=== PATIENT | male | born 1955 | race Caucasian/White ===

== ENCOUNTER 2024-04-28 06:18 | Day surgery (SDC) | payer MEDICARE, SELFPAY ==
[2024-04-28 07:56] LABS: Glucose - Point of Care 126 mg/dl (70-99)
[2024-04-28 07:59] VITALS: BMI 22.6
[2024-04-28 08:00] VITALS: BMI 22.6
[2024-04-28 08:01] VITALS: BP 137/79
[2024-04-28 08:52] VITALS: BP 119/67
[2024-04-28 09:00] VITALS: BP 114/83
[2024-04-28 09:14] LABS: Glucose - Point of Care 124 mg/dl (70-99)
[2024-04-28 09:15] VITALS: BP 119/75
== END 2024-04-28 09:30 | disposition home or self-care (01) ==
LOC: GI 06:18
PROVIDERS: ATTENDING PHYSICIAN Internal Medicine Gastroenterology
DX: K31.84 Gastroparesis (principal); K31.89 Other diseases of stomach and duodenum
CPT/HCPCS: 43236; 82962; J0585

== ENCOUNTER 2024-09-21 06:35 | Day surgery (SDC) | payer MEDICARE, SELFPAY ==
[2024-09-21 09:14] VITALS: BMI 24.3
[2024-09-21 09:15] VITALS: BMI 24.3
[2024-09-21 09:16] VITALS: BP 139/83
[2024-09-21 10:47] VITALS: BP 104/72
[2024-09-21 11:00] VITALS: BP 122/76
[2024-09-21 11:15] VITALS: BP 110/78
== END 2024-09-21 11:33 | disposition home or self-care (01) ==
LOC: SDS 06:35
PROVIDERS: ATTENDING PHYSICIAN Internal Medicine Gastroenterology
DX: K31.84 Gastroparesis (principal); K31.89 Other diseases of stomach and duodenum; K44.9 Diaphragmatic hernia without obstruction or gangrene
CPT/HCPCS: 43236; J0585

== ENCOUNTER → 2024-12-07 12:47 | Outpatient (REF) | payer MEDICARE, SELFPAY | LOC: RAD 12:47 | PROVIDERS: ATTENDING PHYSICIAN Student in an Organized Health Care Education/Training Program; REFERRING PHYSICIAN Internal Medicine Gastroenterology | DX: R10.32 Left lower quadrant pain (principal) | CPT/HCPCS: 74177; Q9967 ==

== ENCOUNTER 2025-03-28 06:29 | Day surgery (SDC) | payer MEDICARE, SELFPAY ==
[2025-03-28 13:33] VITALS: BMI 25.8
[2025-03-28 13:34] VITALS: BP 143/80; BMI 25.8
[2025-03-28 15:23] VITALS: BP 114/72
[2025-03-28 15:30] VITALS: BP 114/74
[2025-03-28 15:45] VITALS: BP 116/76
== END 2025-03-28 15:57 | disposition home or self-care (01) ==
LOC: GI 06:29
PROVIDERS: ATTENDING PHYSICIAN Internal Medicine Gastroenterology
DX: K31.84 Gastroparesis (principal); K44.9 Diaphragmatic hernia without obstruction or gangrene
CPT/HCPCS: 43236; J0585

== ENCOUNTER → 2025-06-09 13:02 | Outpatient (REF) | payer MEDICARE, SELFPAY | LOC: HWRAD 13:02 | PROVIDERS: ATTENDING PHYSICIAN Internal Medicine Gastroenterology; FAMILY PHYSICIAN Student in an Organized Health Care Education/Training Program | DX: K56.41 Fecal impaction (principal) | CPT/HCPCS: 74018 ==

== ENCOUNTER → 2025-11-03 14:36 | Outpatient (REF) | payer MEDICARE, SELFPAY | LOC: HWRAD 14:36 | PROVIDERS: ATTENDING PHYSICIAN Physician Assistant | DX: R05.1 Acute cough (principal) | CPT/HCPCS: 71046 ==